=== PATIENT | male | born 1970 | race Caucasian/White ===

== ENCOUNTER 2020-11-27 18:26 | Outpatient (REF) | payer SELFPAY ==
[2020-11-29 11:55] LABS: COVID-19 RT-PCR UVMMC Result Negative (Negative)
== END 2020-11-27 18:27 | disposition home or self-care (01) ==
LOC: NCHCN 18:26
PROVIDERS: Visit Provider Family Medicine
DX: Z20.822 Contact with and (suspected) exposure to COVID-19 (principal)
CPT/HCPCS: U0003

== ENCOUNTER 2020-12-08 13:31 | Outpatient (REF) | payer BC, SELFPAY ==
[2020-12-08 21:17] LABS: Abs Immature Grans 0.05 10^3/uL (0.0-0.06); Absolute Basophil Count 0.08 10^3/uL (0.0-0.2); Absolute Eosinophil Count 0.14 10^3/uL (0.0-0.7); Absolute Monocyte Count 0.68 10^3/uL (0.1-0.8); Basophils % 0.7; Eosinophils % 1.3; HCT 49.4 % (40.0-50.0); HGB 16.9 g/dL (13.5-17.5); Immature Grans % 0.5; MCH 30.2 pg (27.0-33.0); MCHC 34.2 % (32.0-36.0); MCV 88.2 fL (80-95); MPV 10.9 fL (8.0-11.0); Monocytes % 6.3; Neutrophils % 69.2; Nucleated RBC 0 %; Platelet Count 208 10^3/uL (130-400); RDW 12.4 % (11.8-14.1); RDW-SD 40.2 fL; WBC 10.84 10^3/uL (4.4-10.8)
[2020-12-08 21:28] LABS: Absolute Lymphocyte Count 2.38 10^3/uL (1.2-3.4)
[2020-12-08 21:32] LABS: ALT 89 U/L (16-63); AST 27 U/L (15-37); Albumin 3.9 g/dL (3.4-5.0); Alkaline Phosphatase 86 U/L (46-116); Anion Gap 8.1 mmol/L (3-11); BUN 12 mg/dL (7-18); Bilirubin, Total 0.6 mg/dL (0.2-1.0); CO2 27.9 mmol/L (21.0-32.0); CREATININE 0.8 mg/dL (0.70-1.30); Calcium 9.5 mg/dL (8.5-10.1); Chloride 105 mmol/L (98-107); Glucose 108 mg/dL (74-106); Potassium 4.4 mmol/L (3.5-5.1); Sodium 141 mmol/L (136-145); TSH (W/Ref FT4) 0.57 uIU/mL (0.36-3.74); Total Protein 7.8 g/dL (6.4-8.2)
[2020-12-09 11:08] LABS: COVID-19 RT-PCR UVMMC Result Negative (Negative)
== END 2020-12-08 13:32 | disposition home or self-care (01) ==
LOC: NCHCN 13:31
PROVIDERS: PCP Family Medicine; Visit Provider Family Medicine
DX: R53.83 Other fatigue (principal); B97.89 Other viral agents as the cause of diseases classified elsewhere; Z20.822 Contact with and (suspected) exposure to COVID-19
CPT/HCPCS: 80053; U0003; 84443; 85025

== ENCOUNTER 2021-03-16 12:45 | Outpatient (REF) | payer BC, SELFPAY ==
[2021-03-16 20:14] LABS: Abs Immature Grans 0.04 10^3/uL (0.0-0.06); Absolute Basophil Count 0.05 10^3/uL (0.0-0.2); Absolute Eosinophil Count 0.09 10^3/uL (0.0-0.7); Absolute Lymphocyte Count 2.07 10^3/uL (1.2-3.4); Absolute Monocyte Count 0.65 10^3/uL (0.1-0.8); Absolute Neutrophil Count 7.63 10^3/uL (1.2-6.7); Basophils % 0.5; Eosinophils % 0.9; HCT 49.4 % (40.0-50.0); HGB 16.8 g/dL (13.5-17.5); Immature Grans % 0.4; Lymphocytes % 19.7; MCV 88.2 fL (80-95); MPV 10.4 fL (8.0-11.0); Monocytes % 6.2; Neutrophils % 72.3; Nucleated RBC 0 %; Platelet Count 205 10^3/uL (130-400); RDW-SD 38.8 fL; WBC 10.53 10^3/uL (4.4-10.8)
[2021-03-16 20:19] LABS: ESR 18 mm/hr (0-15)
[2021-03-16 21:01] LABS: ALT 82 U/L (16-63); AST 28 U/L (15-37); Alkaline Phosphatase 89 U/L (46-116); Anion Gap 8.9 mmol/L (3-11); BUN 9 mg/dL (7-18); Bilirubin, Total 0.7 mg/dL (0.2-1.0); CO2 28.1 mmol/L (21.0-32.0); CREATININE 0.9 mg/dL (0.70-1.30); Calcium 9.6 mg/dL (8.5-10.1); Chloride 105 mmol/L (98-107); Glucose 100 mg/dL (74-106); Potassium 4.3 mmol/L (3.5-5.1); Sodium 142 mmol/L (136-145); Total Protein 7.8 g/dL (6.4-8.2)
== END 2021-03-16 12:46 | disposition home or self-care (01) ==
LOC: NCHCN 12:45
PROVIDERS: PCP Family Medicine; Visit Provider Family Medicine
DX: R50.9 Fever, unspecified (principal)
CPT/HCPCS: 80053; 85652; 85025

== ENCOUNTER 2021-03-23 20:46 | Outpatient (REF) | payer BC, SELFPAY ==
[2021-03-25 10:20] LABS: Lyme Ab w Rflx to Lyme Confirm Negative (Negative)
[2021-03-26 09:39] LABS: Anaplasma phagocytophilum Negative (Negative); B. miyamotoi PCR Negative (Negative); Babesia divergens/MO-1 Negative (Negative); Babesia duncani Negative (Negative); Babesia microti Negative (Negative); Ehrlichia chaffeensis Negative (Negative); Ehrlichia ewingii/canis Negative (Negative); Ehrlichia muris eauclairensis Negative (Negative)
== END 2021-03-23 20:47 | disposition home or self-care (01) ==
LOC: NCHCN 20:46
PROVIDERS: PCP Family Medicine; Visit Provider Family Medicine
DX: R53.83 Other fatigue (principal)
CPT/HCPCS: 87798; 86618

== ENCOUNTER 2021-05-21 11:49 | Outpatient (REF) | payer BC, SELFPAY ==
[2021-05-22 10:25] LABS: COVID-19 RT-PCR UVMMC Result Negative (Negative)
== END 2021-05-21 11:50 | disposition home or self-care (01) ==
LOC: NCHCN 11:49
PROVIDERS: PCP Family Medicine; Visit Provider Family Medicine
DX: Z20.822 Contact with and (suspected) exposure to COVID-19 (principal); R09.89 Other specified symptoms and signs involving the circulatory and respiratory systems
CPT/HCPCS: U0003